=== PATIENT | female | born 1995 | race Caucasian/White ===

== ENCOUNTER → 2023-01-25 | Emergency (ER) | payer OTHER ==
[~2023-01-25] VITALS: Ht 157.5 cm; Wt 66.7 kg
[~2023-01-25] MED LIST: CIPRO500 MG PO
== END | disposition home or self-care (01) ==
LOC: ER 19:03
DX: S61.402A Unspecified open wound of left hand, initial encounter (principal); W26.0XXA Contact with knife, initial encounter; Y93.9 Activity, unspecified; Y92.89 Other specified places as the place of occurrence of the external cause; Y99.9 Unspecified external cause status